=== PATIENT | female | born 1990 | race Caucasian/White ===

== ENCOUNTER 2017-01-07 15:03 | Emergency (ER) | payer OTHER ==
[2017-01-07 15:18] VITALS: BP 130/89
[2017-01-07] MEDS ORDERED: Sodium Chloride 0.9% 10 ML Syringe FLUSH PRN (15:33)
[2017-01-07] MEDS ORDERED: Metoclopramide 10 MG/2 ML SDV IVPUSH ONE (15:33)
[2017-01-07] MEDS ORDERED: Ketorolac 30 MG/ML SDV IVPUSH ONE (15:33)
[2017-01-07] MEDS ORDERED: HYDROmorphone 0.5 MG/0.5 ML Syringe IVPUSH ONE (16:20)
--- NOTE | 2017-01-07 16:32 | EDM.PDOC ---
ED HPI HEADACHE COMPLAINT - General Chief Complaint: Headache Stated Complaint: HEADACHE Time Seen by Provider: 01/07/17 15:12 Source of Information: Reports: Patient History Limitations: Reports: No limitations - History of Present Illness INITIAL COMMENTS - FREE TEXT/NARRATIVE: The patient presents with a headache. It is a frontal headache that started yesterday and it has gotten worse. She is nauseated but has no vomiting. She has some blurred vision but no double vision. She is sensitive to light. She has a history of headaches but this one is a bad one. She took some motrin but that did not help. Timing/Duration: Reports: day(s): (Yesterday) Location: Reports: frontal Quality: Reports: squeezing Severity: Reports: severe Context: Denies: change in medications Associated Symptoms: Reports: photophobia, vision changes (Blurry) - Related Data Allergies/ADRs: Allergies Allergy/AdvReac Type Severity Reaction Status Date / Time No Known Allergies Allergy Verified 11/19/16 19:07 Home Meds: Home Meds Pnv No.122/Iron/Folic Acid [ Multi Tablet] 1 each PO DAILY 11/19/16 [ History] Ibuprofen [IJD: Ibuprofen] 600 mg PO Q4H PRN #0 tablet 11/20/16 [Rx] Calcium Carbonate [Calcium] 600 mg PO DAILY 01/07/17 [History] Past Medical History Cardiovascular History: Reports: Other (see below) (Hx of gestational HTN in prior ) Gastrointestinal History: Reports: GERD [employer] 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 , , Spontaneous - Past Surgical History HEENT Surgical History: Reports: Oral surgery, Tonsillectomy Social & Family History - Family History Family Medical History: Noncontributory - Tobacco Use Smoking Status *Q: Never Smoker Years of Tobacco use: 4 Used Tobacco, but Quit: Yes Month Tobacco Last Used: 01/2016 - Caffeine Use Caffeine Use: Reports: Soda Other Caffeine Use: 1 daily - Alcohol Use Days Per Week of Alcohol Use: 2 (none while preg) Number of Drinks Per Day: 2 Total Drinks Per Week: 4 - Recreational Drug Use Recreational Drug Use: No ED ROS GENERAL - Review of Systems Review Of Systems: See Below Constitutional: Reports: no symptoms HEENT: Reports: No symptoms Respiratory: Reports: No Symptoms Cardiovascular: Reports: No symptoms Endocrine: Reports: no symptoms GI/Abdominal: Reports: Nausea. Denies: Vomiting : Reports: no symptoms Musculoskeletal: Reports: no symptoms Skin: Reports: no symptoms Neurological: Reports: Headache - Physical Exam Exam: See Below Exam Limited By: No limitations General Appearance: alert, no apparent distress Ears: normal external exam Nose: normal inspection Head Exam: atraumatic, normocephalic Neck: normal inspection Respiratory/Chest: no respiratory distress, lungs clear, normal breath sounds Cardiovascular: regular rate, rhythm, no edema, no murmur GI/Abdominal: soft, non tender, no organomegaly, no mass Neuro Exam (Abbreviated): alert, oriented, no motor/sensory deficits Extremities: normal inspection Course - Vital Signs Last Recorded V/S: Last Vital Signs Temp 98.5 F 01/07/17 15:11 Pulse 77 01/07/17 15:11 Resp 20 01/07/17 15:11 BP 130/89 01/07/17 15:11 Pulse Ox 96 01/07/17 15:11 - Orders/Labs/Meds Orders: Active Orders 24 hr Category Date Time Status Peripheral IV Care [RC] . DIRECTED Care 01/07/17 15:33 Active Sodium Chloride 0.9% [Saline Flush] Med 01/07/17 15:33 Active 10 ml FLUSH ASDIRECTED PRN Peripheral IV Insertion Adult [OM.PC] Routine Oth 01/07/17 15:33 Ordered Medication Orders Sodium Chloride (Saline Flush) 10 ml FLUSH ASDIRECTED PRN PRN Reason: Keep Vein Open Last Admin: 01/07/17 15:50 Dose: 10 ml Meds: Medications Generic Name Dose Route Start Last Admin Trade Name Freq PRN Reason Stop Dose Admin Sodium Chloride 10 ml 01/07/17 15:33 01/07/17 15:50 Saline Flush FLUSH 10 ml ASDIRECTED PRN Administration Keep Vein Open Discontinued Medications Generic Name Dose Route Start Last Admin Trade Name Freq PRN Reason Stop Dose Admin Hydromorphone HCl 0.5 mg 01/07/17 16:20 01/07/17 16:28 Dilaudid IVPUSH 01/07/17 16:21 0.5 mg ONETIME ONE Administration Ketorolac Tromethamine 30 mg 01/07/17 15:33 01/07/17 15:48 Toradol IVPUSH 01/07/17 15:34 30 mg ONETIME ONE Administration Metoclopramide HCl 10 mg 01/07/17 15:33 01/07/17 15:46 Reglan IVPUSH 01/07/17 15:34 10 mg ONETIME ONE Administration - Re-Assessments/Exams Free Text/Narrative Re-Assessment/Exam: 01/07/17 16:31 I ordered an IV Saline lock and gave her reglan 10mg IV and toradol 30mg IV. That did not help so I ordered some dilaudid 0.5mg IV. 01/07/17 17:11 She is feeling much better and would like to go home. Departure - Departure Time of Disposition: 17:15 Disposition: Home, Self-Care 01 Condition: good Clinical Impression: Headache Qualifiers: Headache type: unspecified Headache chronicity pattern: acute headache Intractability: not intractable Qualified Code(s): R51 - Headache Referrals: Stacy Wick DO [Primary Care Provider] - 1 Week Forms: ED Department Discharge Additional Instructions: Go home and rest in a quit dark room. Try to get plenty of rest and drink plenty of water. Please return if you are worse such as worsening headache, numbness or weakness. Follow up with your doctor in 1 week. - My Orders Last 24 Hours: My Active Orders 01/07/17 15:33 Peripheral IV Care [RC] . DIRECTED Sodium Chloride 0.9% [Saline Flush] 10 ml FLUSH ASDIRECTED PRN Peripheral IV Insertion Adult [OM.PC] Routine - Assessment/Plan Last 24 Hours: My Active Orders 01/07/17 15:33 Peripheral IV Care [RC] . DIRECTED Sodium Chloride 0.9% [Saline Flush] 10 ml FLUSH ASDIRECTED PRN Peripheral IV Insertion Adult [OM.PC] Routine
== END 2017-01-07 17:20 | disposition home or self-care (01) ==
LOC: JD.ED 15:03
DX: R51 Headache (principal); R11.0 Nausea; H53.8 Other visual disturbances; K21.9 Gastro-esophageal reflux disease without esophagitis; Z79.899 Other long term (current) drug therapy; Z98.890 Other specified postprocedural states; Z90.89 Acquired absence of other organs
CPT/HCPCS: 96374; 96375; 99284; J1170; J1885; J2765; J7050

== ENCOUNTER 2017-12-08 06:22 | Day surgery (SDC) | payer OTHER ==
[~2017-12-08 06:22] MED LIST: Lactated Ringers 1,000 ML IV SCH; Lidocaine 1%/Sod Bicarbonate in NS 8.4% 1 ML Syringe IDERM PRN; Sodium Chloride 0.9% 10 ML Syringe FLUSH PRN
[2017-12-08] MEDS ORDERED: Bupivacaine 0.25% 30 ML SDV ONE (06:26)
[2017-12-08] MEDS ORDERED: Lidocaine 1% 4 ML ONE (06:46)
[2017-12-08] MEDS ORDERED: Propofol 200 MG/20 ML SDV ONE (06:46)
[2017-12-08] MEDS ORDERED: Midazolam 1 MG/ML 2 ML SDV ONE (06:46)
[2017-12-08] MEDS ORDERED: fentaNYL 100 MCG/2 ML SDV ONE (06:46)
[2017-12-08] MEDS ORDERED: Ketamine 500 mg/10 ML MDV ONE (06:46)
[2017-12-08] MEDS ORDERED: Ondansetron 4 MG/2 ML SDV ONE (06:46)
--- NOTE | 2017-12-08 07:11 | PCM.PREANE ---
Preanesthetic Assessment - Anesthesia/Transfusion/Family Hx Anesthesia History: Prior Anesthesia Without Reaction Family History of Anesthesia Reaction: No Transfusion History: No Prior Transfusion(s) - Review of Systems General: No Symptoms Pulmonary: No Symptoms Cardiovascular: No Symptoms Gastrointestinal: No Symptoms Neurological: No Symptoms Other: Reports: None - Physical Assessment NPO Status Date: 12/07/17 NPO Status Time: 22:00 Pulse: 61 O2 Sat by Pulse Oximetry: 98 Respiratory Rate: 16 Blood Pressure: 116/82 Weight: 65 kg ASA Class: 2 Mental Status: Alert & Oriented x3 Airway Class: Mallampati = 1 Dentition: Reports: Normal Dentition Thyro-Mental Finger Breadths: 3 Mouth Opening Finger Breadths: 3 ROM/Head Extension: Full Lungs: Clear to Auscultation, Normal Respiratory Effort Cardiovascular: Regular Rate, Regular Rhythm - Lab Values: Laboratory Last Values Urine HCG, Qual Negative (NEGATIVE) 12/08/17 06:35 MRSA (PCR) Negative 12/01/17 09:43 - Allergies Allergies/Adverse Reactions: Allergies Allergy/AdvReac Type Severity Reaction Status Date / Time metals Allergy Rash Uncoded 12/07/17 16:09 - Acknowledgements Anesthesia Type Planned: FARHANA, MAC Pt an Appropriate Candidate for the Planned Anesthesia: Yes Alternatives and Risks of Anesthesia Discussed w Pt/Guardian: Yes Pt/Guardian Understands and Agrees with Anesthesia Plan: Yes PreAnesthesia Questionnaire HEENT History: Reports: Impaired Vision Cardiovascular History: Reports: None Respiratory History: Reports: None Gastrointestinal History: Reports: GERD Genitourinary History: Reports: None [employer] History: Reports: Ectopic , , Spontaneous Musculoskeletal History: Reports: Other (See Below) Other Musculoskeletal History: mass to finger Neurological History: Reports: None Psychiatric History: Reports: None Endocrine/Metabolic History: Reports: None Hematologic History: Reports: None Immunologic History: Reports: None Oncologic (Cancer) History: Reports: None - Past Surgical History Head Surgeries/Procedures: Reports: None HEENT Surgical History: Reports: Oral Surgery, Tonsillectomy Respiratory Surgical History: Reports: None GI Surgical History: Reports: None Female Surgical History: Reports: None Male Surgical History: Reports: None Endocrine Surgical History: Reports: None Neurological Surgical History: Reports: None Musculoskeletal Surgical History: Reports: None Dermatological Surgical History: Reports: Other (See Below) - SUBSTANCE USE Smoking Status *Q: Current Every Day Smoker Tobacco Use Within Last Twelve Months: Cigarettes Days Per Week of Alcohol Use: 2 Number of Drinks Per Day: 2 Total Drinks Per Week: 4 Recreational Drug Use History: No - HOME MEDS Home Medications: Home Meds Acetaminophen/HYDROcodone [Evergreen 325-5 MG] 1 - 2 tab PO Q6H PRN #20 tablet 12/08 [Rx] - CURRENT (IN HOUSE) MEDS Current Meds: Current Medications Lactated Ringer's (Ringers, Lactated) 1,000 mls @ 125 mls/hr IV ASDIRECTED ALEE Stop: 12/08/17 23:00 Lidocaine/Sodium Bicarbonate (Buffered Lidocaine 1% In Ns 8.4%) 0.25 ml IDERM ONETIME PRN PRN Reason: Prior to IV Start Stop: 12/08/17 18:00 Sodium Chloride (Saline Flush) 10 ml FLUSH ASDIRECTED PRN PRN Reason: Keep Vein Open Stop: 12/08/17 18:00 Discontinued Medications Bupivacaine HCl (Marcaine 0.25%) Confirm Administered Dose 30 ml .ROUTE .STK- MED ONE Stop: 12/08/17 06:27 Fentanyl (Sublimaze) Confirm Administered Dose 100 mcg .ROUTE .STK-MED ONE Stop: 12/08/17 06:47 Lidocaine HCl (Xylocaine-Mpf 1%) Confirm Administered Dose 4 mls @ as directed .ROUTE .STK-MED ONE Stop: 12/08/17 06:47 Ketamine HCl (Ketalar) Confirm Administered Dose 500 mg .ROUTE .STK-MED ONE Stop: 12/08/17 06:47 Midazolam HCl (Versed 1 Mg/Ml) Confirm Administered Dose 2 mg .ROUTE .STK-MED ONE Stop: 12/08/17 06:47 Ondansetron HCl (Zofran) Confirm Administered Dose 4 mg .ROUTE .STK-MED ONE Stop: 12/08/17 06:47 Propofol (Diprivan 20 Ml) Confirm Administered Dose 600 mg .ROUTE .STK-MED ONE Stop: 12/08/17 06:47
[2017-12-08] MEDS ORDERED: Sodium Bicarbonate 8.4% 50 MEQ/50 ML SDV ONE (07:56)
[2017-12-08] MEDS ORDERED: Lidocaine 0.5% 50 ML SDV ONE (07:56)
[2017-12-08] MEDS ORDERED: Acetaminophen/HYDROcodone 325-5 MG Tab PO PRN (08:04)
--- NOTE | 2017-12-08 08:10 | PCM48HPAN ---
Post Anesthesia Note - EVALUATION WITHIN 48HRS OF ANESTHETIC Vital Signs in Normal Range: Yes Patient Participated in Evaluation: Yes Respiratory Function Stable: Yes Airway Patent: Yes Cardiovascular Function Stable: Yes Hydration Status Stable: Yes Pain Control Satisfactory: Yes Nausea and Vomiting Control Satisfactory: Yes Mental Status Recovered: Yes
[2017-12-08 08:35] VITALS: BP 114/80
--- NOTE | 2017-12-15 09:20 | PCM.OPNOTE ---
- General Post-Op/Procedure Note Date of Surgery/Procedure: 12/08/17 Operative Procedure(s): right third finger mass excision Pre Op Diagnosis: right third finger volar mass Post-Op Diagnosis: Same Anesthesia Technique: MAC, Regional Block (benito) Primary Surgeon: Rome Whitney Anesthesia Provider: Marilou Bunch Electrical Accessories Ii Assembler: Lashon Arreola EBL in mLs: 5 Complications: None Condition: Good
--- NOTE | 2017-12-15 10:50 | OR ---
DATE OF OPERATION: 12/08/2017 SURGEON: Rome Whitney MD OPERATION PERFORMED: Right third finger mass excision. PREOPERATIVE DIAGNOSIS: Right middle finger volar mass. POSTOPERATIVE DIAGNOSIS: Right middle finger volar mass. ANESTHESIA: MAC with regional [place] block. ANESTHESIOLOGIST: Luis Fernando Chong CRNA. ASSISTANTS: Lashon Arreola PA-C. ESTIMATED BLOOD LOSS: Less than 5 mL. COMPLICATIONS: None. CONDITION: Stable. DESCRIPTION OF PROCEDURE: The patient was identified in the preoperative holding area. Proper site was marked and identified by the surgeon. The patient was taken back to the operating theater where after adequate anesthesia with the [place] block, the patient's right upper extremity was sterilely prepped and draped in the usual sterile fashion. OR time-out was performed. The patient received 2 g of IV Ancef before the [place] block. At this time, a transverse incision was made over the MCP joint crease of the right third finger. At this time, the mass was noted to be off the tendon sheath and was shelled out in whole and removed. At this time, the neurovascular bundle was identified and protected. It was noted that the stalk came off that was cauterized at this time. Adequate saline was then irrigated through the wound and 4-0 nylon simple suture was used for closure of the skin. The patient was sent to the PACU in stable condition after sterile soft dressing was applied. MMODAL /[id number]
== END 2017-12-08 08:35 | disposition home or self-care (01) ==
LOC: JD.SDS 06:22
PROVIDERS: ATTEND Orthopaedic Surgery
DX: M67.441 Ganglion, right hand (principal); Z91.09 Other allergy status, other than to drugs and biological substances; F17.210 Nicotine dependence, cigarettes, uncomplicated
CPT/HCPCS: 26160; 81025; 87641; A9270; J2250; J2405; J3010; J3490; J7120; 00400; J2704